=== PATIENT | female | born 1935 | race Caucasian/White ===

== ENCOUNTER 2016-05-09 11:38 | Inpatient (IN) | payer OTHER ==
[~2016-05-09] VITALS: Ht 167.6 cm; Wt 66.5 kg
[~2016-05-09 11:38] MED LIST: ACTOS30 MG PO; ALLERGY MEDICAT25 M1 PO; ATIVAN0.5 MG PO; CARDIZEM CD180 MG PO; CEFTIN500 MG; GLIPIZIDE10 MG PO; GLUCOPHAGE1000 MG PO; GLUCOTROL10 MG PO; HYDROXYZINE HCL25 M1 PO; LIPITOR20 MG PO; LISINOPRIL-HCT1 EAC3 PO; NOLVADEX20 MG PO; NORVASC10 MG PO; PEPCID20 MG; PREDNISONE20 MG PO; TRAMADOL HCL50 MG PO; VICTOZA 2-0.6 MG/0.1 SC
[2016-05-09 12:34] VITALS: BP 142/66
[2016-05-09 12:41] LABS: POINT-OF-CARE METER ID UU14174212
[2016-05-09 18:58] LABS: POINT-OF-CARE METER ID UU13113675
[2016-05-09 22:12] VITALS: BP 189/79
[2016-05-10 04:14] VITALS: BP 141/65
[2016-05-10 08:30] VITALS: BP 133/61
[2016-05-10] MEDS ORDERED: HYDROCODON-ACE1 EAC7 PO (09:23)
== END 2016-05-10 10:41 | disposition home or self-care (01) | DRG 519 ==
LOC: SDC 11:38 → 2SOUTH 18:13 → 3EAST 18:13
PROVIDERS: Neurological Surgery
PROC: 00NY0ZZ Release Lumbar Spinal Cord, Open Approach (ICD-10-PCS; principal; 2016-05-09)
DX: M48.06 Spinal stenosis, lumbar region (principal); G83.4 Cauda equina syndrome; M47.816 Spondylosis without myelopathy or radiculopathy, lumbar region; E11.9 Type 2 diabetes mellitus without complications; I10 Essential (primary) hypertension; E78.5 Hyperlipidemia, unspecified; I34.0 Nonrheumatic mitral (valve) insufficiency; Z30.2 Encounter for sterilization; Z87.891 Personal history of nicotine dependence
CPT/HCPCS: 72100; 76000; 82948; J0690; J1170; J2250; J2710; J3010; J3480

== ENCOUNTER 2016-05-11 23:42 | Inpatient (IN) | payer OTHER ==
[~2016-05-11] VITALS: Ht 167.6 cm; Wt 74.5 kg
[~2016-05-11 23:42] MED LIST changes: +HYDROCODON-ACE1 EAC7 PO
[2016-05-12 00:59] LABS: EOSINOPHIL (%) 1.7 % (0-5); EOSINOPHIL COUNT 0.2 K/uL (0-0.3); HEMATOCRIT 35.3 % (36.0-46.0); IMMATURE GRANULOCYTE (%) 0.2 % (0.0-0.7); IMMATURE GRANULOCYTE COUNT 0.3 K/uL; LYMPHOCYTE COUNT 1.3 K/uL (1.0-2.8); MCH 29.1 PG (29.0-34.0); MCHC 34.3 G/DL (30.0-36.0); MCV 84.9 FL (83-99); MEAN PLAT.VOLUME 10.3 uM^3 (9.5-12.4); MONOCYTE (%) 8.2 % (3-12); MONOCYTE COUNT 1.1 K/uL (0-0.8); NEUTROPHIL (%) 79.4 % (45-76); NEUTROPHIL COUNT 10.2 K/uL (1.8-6.4); PLATELET COUNT 247 K/uL (156-360); RBC DIS.WIDTH-CV 13.3 % (11.8-14.6); RBC DIS.WIDTH-SD 40.6 % (39-53); RED BLOOD COUNT 4.16 M/uL (3.80-5.20)
[2016-05-12 01:00] LABS: WHITE BLOOD COUNT 12.8 K/uL (4.1-10.2)
[2016-05-12 01:06] LABS: CHLORIDE 102 mEq/L (99-109); POTASSIUM 4.3 mEq/L (3.7-5.4); SODIUM 135 mEq/L (136-147)
[2016-05-12 01:08] LABS: GLUCOSE 174 mg/dL (70-99)
[2016-05-12 01:09] LABS: ANION GAP 11 MEQ/L (2-14)
[2016-05-12 01:12] LABS: GFR ESTIMATE (CALCULATED) 51 mL/min/
[2016-05-12 01:13] LABS: UREA NITROGEN (BUN) 19 mg/dL (9-23)
[2016-05-12 06:17] VITALS: BP 160/70
[2016-05-12 07:24] VITALS: BP 140/62
[2016-05-12 10:16] LABS: PROTHROMBIN TIME 10.3 (9.2-11.2)
[2016-05-12 10:46] VITALS: BP 122/52
[2016-05-12 15:48] VITALS: BP 157/60
[2016-05-12 20:39] LABS: GLUCOSE 204 mg/dL (70-99)
[2016-05-12 22:01] LABS: POINT-OF-CARE METER ID UU14149397
[2016-05-13 00:06] VITALS: BP 174/82
[2016-05-13 06:50] LABS: POINT-OF-CARE METER ID UU14149397
[2016-05-13 08:05] VITALS: BP 133/66
[2016-05-13 09:12] LABS: GLUCOSE 239 mg/dL (70-99)
[2016-05-13 15:53] VITALS: BP 100/59
[2016-05-13 20:47] LABS: GLUCOSE 258 mg/dL (70-99)
[2016-05-13 21:43] LABS: POINT-OF-CARE METER ID UU14149397
[2016-05-13 23:45] VITALS: BP 150/92
[2016-05-14 06:56] LABS: POINT-OF-CARE METER ID UU14188577
[2016-05-14 08:28] VITALS: BP 143/67
[2016-05-14 09:37] LABS: GLUCOSE 197 mg/dL (70-99)
[2016-05-14 11:41] LABS: POINT-OF-CARE METER ID UU14149397
[2016-05-14 12:00] VITALS: BP 139/74
[2016-05-14 16:00] VITALS: BP 184/77
[2016-05-14 16:43] LABS: POINT-OF-CARE METER ID UU14188577
[2016-05-14 20:18] LABS: GLUCOSE 194 mg/dL (70-99)
[2016-05-14 22:12] LABS: POINT-OF-CARE METER ID UU14149397
[2016-05-14 23:23] VITALS: BP 138/64
[2016-05-15 05:52] VITALS: BP 181/78
[2016-05-15 06:03] LABS: GFR ESTIMATE (CALCULATED) > 59 mL/min/; UREA NITROGEN (BUN) 11 mg/dL (9-23)
[2016-05-15 06:49] LABS: POINT-OF-CARE METER ID UU14188577
[2016-05-15 11:45] VITALS: BP 156/73
[2016-05-15 12:03] LABS: POINT-OF-CARE METER ID UU14149397; POINT-OF-CARE USER ID 606021404
[2016-05-15 15:46] VITALS: BP 181/80
[2016-05-15] MEDS ORDERED: SENNA LAXATIVE25 MG PO (16:14)
[2016-05-15 17:25] LABS: POINT-OF-CARE USER ID 606021404
[2016-05-15 23:04] VITALS: BP 164/74
[2016-05-16 07:44] VITALS: BP 160/79
[2016-05-16 11:50] LABS: POINT-OF-CARE METER ID UU14149397
[2016-05-16 15:49] VITALS: BP 140/71
[2016-05-16 16:48] LABS: POINT-OF-CARE METER ID UU14149397
[2016-05-16 22:12] LABS: POINT-OF-CARE METER ID UU14188577
[2016-05-17 00:31] VITALS: BP 168/77
[2016-05-17 07:28] VITALS: BP 174/78
[2016-05-17 11:44] LABS: POINT-OF-CARE METER ID UU14149397
[2016-05-17 15:24] VITALS: BP 147/66
[2016-05-17 17:05] LABS: POINT-OF-CARE METER ID UU14188577
== END 2016-05-17 17:12 | DRG 947 ==
LOC: EME 23:42 → 3EAST 05-12 04:44 → EDOF 05-12 04:44 → 3EAST 05-12 05:50
PROVIDERS: Emergency Medicine; Neurological Surgery; Physician Assistant
DX: R53.1 Weakness (principal); S06.5X0A Traumatic subdural hemorrhage without loss of consciousness, initial encounter; E11.9 Type 2 diabetes mellitus without complications; I10 Essential (primary) hypertension; K59.00 Constipation, unspecified
CPT/HCPCS: 71010; 72132; 74000; 80048; 82565; 82947; 82947 91; 82948; 84520; 85025; 85610; 85730; 97530 GO; 97530 GP; 99281; 99285; J2270; J2405; J3010; J3480; J7030

== ENCOUNTER 2016-05-29 15:44 | Inpatient (IN) | payer OTHER ==
[~2016-05-29] VITALS: Ht 167.6 cm; Wt 67.1 kg
[~2016-05-29 15:44] MED LIST changes: +SENNA LAXATIVE25 MG PO
[2016-05-29 17:11] VITALS: BP 168/66
[2016-05-29] MEDS ORDERED: AMLODIPINE BESY10 MG PO (17:11)
[2016-05-29] MEDS ORDERED: OMEPRAZOLE20 MG PO (17:12)
[2016-05-29 18:17] LABS: EOSINOPHIL (%) 2.4 % (0-5); EOSINOPHIL COUNT 0.2 K/uL (0-0.3); HEMATOCRIT 34.3 % (36.0-46.0); IMMATURE GRANULOCYTE (%) 0.2 % (0.0-0.7); INSTRUMENT ABS NEUTROPHIL CT 6.3 K/uL; MCH 27.9 PG (29.0-34.0); MCHC 32.1 G/DL (30.0-36.0); MCV 87.1 FL (83-99); MEAN PLAT.VOLUME 9.7 uM^3 (9.5-12.4); MONOCYTE (%) 7.4 % (3-12); MONOCYTE COUNT 0.7 K/uL (0-0.8); NEUTROPHIL (%) 68.4 % (45-76); NEUTROPHIL COUNT 6.3 K/uL (1.8-6.4); PLATELET COUNT 451 K/uL (156-360); RBC DIS.WIDTH-CV 13.1 % (11.8-14.6); RBC DIS.WIDTH-SD 41.5 % (39-53); RED BLOOD COUNT 3.94 M/uL (3.80-5.20); WHITE BLOOD COUNT 9.3 K/uL (4.1-10.2)
[2016-05-29 18:36] LABS: PROTHROMBIN TIME 10.4 (9.2-11.2); PTT 28.9 (25-32)
[2016-05-29 21:11] LABS: ADD MIUA? NO; BILIRUBIN NEGATIVE; BLOOD NEGATIVE; COLOR YELLOW ((YELLOW)); GLUCOSE (STRIP) NEGATIVE; KETONES NEGATIVE; LEUKOCYTES NEGATIVE; NITRITE NEGATIVE; PROTEIN (STRIP) NEGATIVE; SPECIFIC GRAVITY 1.012 (1.000-1.030); UROBILINOGEN 0.2 MG/DL (0.2-1.0)
[2016-05-29 22:43] LABS: POINT-OF-CARE METER ID UU14149397
[2016-05-29 23:52] VITALS: BP 173/70
[2016-05-30 06:03] LABS: EOSINOPHIL (%) 4.3 % (0-5); EOSINOPHIL COUNT 0.3 K/uL (0-0.3); HEMATOCRIT 31.7 % (36.0-46.0); IMMATURE GRANULOCYTE (%) 0.3 % (0.0-0.7); INSTRUMENT ABS NEUTROPHIL CT 4.5 K/uL; LYMPHOCYTE COUNT 1.8 K/uL (1.0-2.8); MCH 28.3 PG (29.0-34.0); MCHC 32.8 G/DL (30.0-36.0); MCV 86.4 FL (83-99); MONOCYTE (%) 7.9 % (3-12); MONOCYTE COUNT 0.6 K/uL (0-0.8); NEUTROPHIL COUNT 4.5 K/uL (1.8-6.4); PLATELET COUNT 429 K/uL (156-360); RBC DIS.WIDTH-CV 13.2 % (11.8-14.6); RBC DIS.WIDTH-SD 41.5 % (39-53); RED BLOOD COUNT 3.67 M/uL (3.80-5.20); WHITE BLOOD COUNT 7.3 K/uL (4.1-10.2)
[2016-05-30 08:30] VITALS: BP 129/60
[2016-05-30 09:14] LABS: ERTH.SED.RATE 36 MM/HR (0-30)
[2016-05-30 09:46] LABS: GFR ESTIMATE (CALCULATED) > 59 mL/min/
[2016-05-30 11:18] LABS: POINT-OF-CARE METER ID UU14188577
[2016-05-30 19:31] VITALS: BP 150/69
[2016-05-30 22:56] LABS: POINT-OF-CARE METER ID UU13113675
[2016-05-30 23:15] VITALS: BP 150/63; BP 150/65
[2016-05-31 04:48] VITALS: BP 126/60
[2016-05-31 07:03] LABS: POINT-OF-CARE METER ID UU14149397
[2016-05-31 07:26] VITALS: BP 124/57
[2016-05-31 15:52] VITALS: BP 127/59
[2016-06-01 00:14] VITALS: BP 125/59
[2016-06-01 07:10] VITALS: BP 120/58
[2016-06-01 07:15] LABS: POINT-OF-CARE METER ID UU14188577
[2016-06-01 11:43] VITALS: BP 124/62
[2016-06-01 16:34] VITALS: BP 127/60
[2016-06-02 00:03] VITALS: BP 132/66
[2016-06-02 07:46] VITALS: BP 122/60
[2016-06-02] MEDS ORDERED: ENDOCET 5-3251 EACH PO (08:13)
[2016-06-02 15:30] VITALS: BP 151/66
[2016-06-02 19:07] LABS: POINT-OF-CARE METER ID UU14188577
== END 2016-06-02 19:23 | DRG 863 ==
LOC: 3EAST 15:44 → 2SOUTH 15:45 → 3EAST 15:52 → 2SOUTH 15:54 → 3EAST 16:36
PROVIDERS: Neurological Surgery; Physician Assistant
PROC: 0J9700Z Drainage of Back Subcutaneous Tissue and Fascia with Drainage Device, Open Approach (ICD-10-PCS; principal; 2016-05-30)
DX: T81.4XXA Infection following a procedure, initial encounter (principal); E11.9 Type 2 diabetes mellitus without complications; B96.20 Unspecified Escherichia coli [E. coli] as the cause of diseases classified elsewhere
CPT/HCPCS: 76937; 81003; 82565; 82948; 85025; 85610; 85651; 85730; 86140; 87070; 87075; 87077; 87186; 87205; J0330; J0696; J1100; J1170; J1580; J2405; J3010; J3370; J3480; J7030; J7050; S0020

== ENCOUNTER 2016-06-05 09:47 | Emergency (ER) | payer OTHER ==
[~2016-06-05] VITALS: Ht 167.6 cm; Wt 67.2 kg
[~2016-06-05 09:47] MED LIST changes: +AMLODIPINE BESY10 MG PO; +ENDOCET 5-3251 EACH PO; +OMEPRAZOLE20 MG PO
[2016-06-05] MEDS ORDERED: ROCEPHIN2 GM/50 ML IV (10:20)
[2016-06-05] MEDS ORDERED: DULCOLAX10 MG PR (10:23)
[2016-06-05] MEDS ORDERED: FLEET ENEMA-AD118 ML PR (10:23)
[2016-06-05] MEDS ORDERED: GLUCAGEN1 MG IM (10:24)
[2016-06-05] MEDS ORDERED: GLUTOSE 1537.5 GM PO (10:25)
[2016-06-05] MEDS ORDERED: MILK OF MAGN PO (10:27)
[2016-06-05] MEDS ORDERED: TYLENOL REGULA325 MG PO (10:28)
[2016-06-05 11:21] VITALS: BP 102/87
== END 2016-06-05 13:04 ==
LOC: EME → EDBD 09:47 → EME 13:04
DX: T82.534A Leakage of infusion catheter, initial encounter (principal); I10 Essential (primary) hypertension; E11.9 Type 2 diabetes mellitus without complications; Z79.84 Long term (current) use of oral hypoglycemic drugs; E78.5 Hyperlipidemia, unspecified; G89.29 Other chronic pain; F41.9 Anxiety disorder, unspecified
CPT/HCPCS: 99281; 99284

== ENCOUNTER 2016-06-29 11:05 | Emergency (ER) | payer OTHER ==
[~2016-06-29] VITALS: Ht 167.6 cm; Wt 66.5 kg
[~2016-06-29 11:05] MED LIST changes: +DULCOLAX10 MG PR; +FLEET ENEMA-AD118 ML PR; +GLUCAGEN1 MG IM; +GLUTOSE 1537.5 GM PO; +MILK OF MAGN PO; +ROCEPHIN2 GM/50 ML IV; +TYLENOL REGULA325 MG PO
[2016-06-29] MEDS ORDERED: MIRALAX17 GM PO (13:52)
[2016-06-29 14:32] VITALS: BP 128/82
== END 2016-06-29 14:34 | disposition home or self-care (01) ==
LOC: EXP 11:05 → EME 11:05 → EXP 14:34
DX: S42.202A Unspecified fracture of upper end of left humerus, initial encounter for closed fracture (principal); E78.5 Hyperlipidemia, unspecified; I10 Essential (primary) hypertension; Y92.009 Unspecified place in unspecified non-institutional (private) residence as the place of occurrence of the external cause; W17.89XA Other fall from one level to another, initial encounter; Z87.442 Personal history of urinary calculi; Z85.3 Personal history of malignant neoplasm of breast
CPT/HCPCS: 73030; 99281; 99283